=== PATIENT | male | born 1950 | race Caucasian/White ===

== ENCOUNTER 2021-11-14 13:58 | Emergency (ER) | payer MEDICARE, BC, SELFPAY ==
[2021-11-14 14:18] VITALS: BP 160/121; PULSE 79; RESP 14; TEMP 36.5; O2SAT 97
--- NOTE | 2021-11-14 14:47 | DI.RAD_ITS ---
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 COMPARISON: No exams were available for comparison FINDINGS: MEDIASTINUM: Normal. HEART: Normal. PULMONARY VASCULATURE: Normal. LUNGS: Clear. PLEURAL SPACE: No pleural effusion or pneumothorax. BONE:Within normal limits for the patient's age. LEFT RIBS: There are multiple old healed left rib fractures. There is a question cortical disruption the anterolateral aspects of the left 5th and 6th rib suspicious for nondisplaced fractures. OTHER FINDINGS:Normal. IMPRESSION: 1. No acute pulmonary findings. 2. Question of acute nondisplaced fractures involving the anterolateral 5th and 6th left ribs. DATA REPOSITORY: RADIATION DOSE DELIVERED:
--- NOTE | 2021-11-14 16:07 | DI.VRAD_ITS ---
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 Views: 2 views. COMPARISON: No relevant prior studies available. FINDINGS: Bones/joints: There are moderate degenerative changes of the glenohumeral joint. There are fractures of the left posterolateral 6th and 7th ribs that appear chronic. There are more acute appearing fractures of the left 8th 9th and 10th ribs. Soft tissues: Normal. IMPRESSION: Multiple chronic and acute left rib fractures. 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 Views: 2 views. COMPARISON: No relevant prior studies available. FINDINGS: Lungs: Unremarkable. No consolidation. Pleural spaces: Unremarkable. No pleural effusion. No pneumothorax. Heart/Mediastinum: Unremarkable. No cardiomegaly. Bones/joints: Thoracolumbar scoliosis IMPRESSION: No acute cardiopulmonary findings. Dictated and Authenticated by: Davy Xiao MD. Ordering:GRADY Negron MD
--- NOTE | 2021-11-14 16:25 | ED.GENADUL_ITS ---
Discharge Plan Disposition Patient Disposition: HOME Condition: Serious Discharge Details Clinical Impression: Multiple rib fractures Primary Care Provider: Unknown,Unknown ED Provider: Migdalia Ruelas Home Meds and New Rx's Prescriptions: New hydrocodone-acetaminophen 5-325 mg tablet 1 tab PO Q8H PRNQty: 10 0RF Continued sulfamethoxazole-trimethoprim [Bactrim] 400-80 mg Tablet 1 tab PO DAILY 0RF clonazepam 0.5 mg Tablet 1 mg PO TID 0RF Discharge Instructions Instructions: Rib Fracture (ED) Additional Instructions: Use your incentive spirometer every half an hour while you are awake, this will prevent you from developing pneumonia You are at great risk for developing pneumonia given your COPD history Please take the pain medication as needed pain use the Lidoderm patch twop-scr-[id number] apply towers on, 12 hours off Please return immediately should you develop worsening shortness of breath, fever, chills, or with any new or worsening complaints Recheck in 24 to 48 hours for reassessment Discharge Data Discharge Date/Time-TO BE ENTERED AT DEPARTURE: 11/14/21 17:04 Medical Decision Making Fractures to a 8-10 on x-ray, no pneumothorax per radiology interpretation in my review Offered admission given patient's age and multiple rib fractures, however patient has declined, he is ambulatory with steady gait He is alert and oriented x4 and of decisional capacity No additional evidence of trauma and event occurred 3 days prior to arrival without obvious infiltrate or pneumothorax on x-ray, reassuring Given small amount of opiate analgesia with versed discussed Patient was visiting family and resides in [place] typically, he is instructed to follow-up at his earliest ability return for patient expressed understanding, supplied with incentive spirometry with instructions regarding use Discharged home in stable condition stable, ambulatory steady gait, no hypoxia or tachypnea Medical Records Medical records reviewed: Yes I reviewed the patient's medical records. HPI General Date/Time Provider Initiated Documentation: 11/14/21 14:35 . HPI Narrative: This 71-year-old gentleman with history of COPD presents status post slip and fall on ice. He was taking his dog for a walk when another dog attacked his dog and the patient slipped, landing on his left side. This occurred 3 days prior to arrival. He denies any additional injuries. He is able to ambulate at home after the event. There was no loss of consciousness. Patient is not anticoagulated. He does smoke tobacco and does have COPD but is controlled on his medications. He is reportedly visiting from [place]. He presents today secondary to persistent pain that is not improving. He denies any fever, chills, worsening shortness of breath. Related Data Home Medications Medication Instructions Recorded Confirmed clonazepam 0.5 mg tablet 1 mg PO TID 11/14/21 11/14/21 sulfamethoxazole 400 1 tab PO DAILY 11/14/21 11/14/21 mg-trimethoprim 80 mg tablet (Bactrim) hydrocodone 5 mg-acetaminophen 325 1 tab PO Q8H PRN #10 tab 11/15/21 mg tablet Previous Rx's Medication Instructions Recorded hydrocodone 5 mg-acetaminophen 325 1 tab PO Q8H PRN #10 tab 11/15/21 mg tablet Allergies Allergy/AdvReac Type Severity Reaction Status Date / Time No Known Allergies Allergy Unverified 11/14/21 14:21 General Stated Complaint: Chest/Rib CLINTON: 3 Review of Systems All systems reviewed & are unremarkable except as noted in HPI and below PFSH All Active Problems (Updated 11/14/21 @ 16:28 by KEERTHI Kirkpatrick) Multiple rib fractures (Acute) Social History Smoking/Tobacco Use Status: Current every day Tobacco Type: cigarettes Smoking risk assessment performed?: Yes Alcohol Intake: current Alcohol Intake frequency: 0-2 drinks per day Alcohol type: hard liquor Drug use: Occasionally Substance use type: marijuana Do you feel safe at home: Yes Exam Const General: cooperative, comfortable and no acute distress HENMT Head: normal to inspection Eyes Pupils: PERRL Neck Other: No midline tenderness Chest Chest: normal inspection of the chest Other: No crepitus, tenderness with palpation over left lower rib cage, no flail Chest Resp Effort & Inspection: normal respiratory effort Auscultation: clear to auscultation bilaterally Cardio Rate: regular rate Rhythm: regular rhythm GI Other: Nontender abdominal exam no tenderness over spleen or liver, no visible sign of trauma Skin General skin exam: no rashes or lesions noted Neuro General: patient alert and patient oriented x3 Extrem General: normal to inspection Psych Appearance: grossly normal Course Vital Signs Vital signs: Vital Signs Temperature 36.5 C 11/14/21 14:18 Pulse 79 11/14/21 14:18 Respiratory Rate 14 11/14/21 14:18 Blood Pressure 160/121 H 11/14/21 14:18 Pulse Oximetry 97 11/14/21 14:18 Temperature 36.5 C 11/14/21 14:18 Temperature Source Temporal Artery Scan 11/14/21 14:18 Pulse 79 11/14/21 14:18 Respiratory Rate 14 11/14/21 14:18 Respiratory Effort Non-Labored 11/14/21 14:22 Blood Pressure 160/121 H 11/14/21 14:18 Blood Pressure Position Sitting 11/14/21 14:18 Pulse Oximetry 97 11/14/21 14:18 Oxygen Delivery Method Room Air 11/14/21 14:18 Oxygen Flow Rate 0 11/14/21 14:18 Pain Level 8 11/14/21 14:18 PAWSS Have you Been Recently Intoxicated or Drunk Within the Last 30 days?: No Have you Ever Experienced Previous Episodes of Alcohol Withdrawal?: No Have you ever Experienced Withdrawal Seizures?: No Have you ever Experienced Delirium Tremens(DT)s?: No Have you ever undergone Alcohol Rehabilitation Treatment (i.e, inpt ot outpatient treatment programs)?: No Have you ever Experienced Blackouts?: No Have you ever Combined Alcohol with other Downers within the last 90 days?: No Have you ever Combined Alcohol with any other Substance of Abuse during the last 90 days?: No Positive Blood Alcohol level on Presentation? [PCS.BAL]: No Evidence of Increased Autonomic Activity (i.e. HR>120, tremor, sweating, agitation, nausea)?: No Result: 0
[2021-11-14 16:37] VITALS: BP 103/69; PULSE 73; TEMP 36.7
== END 2021-11-14 17:04 | disposition home or self-care (01) ==
PROVIDERS: Emergency Provider Physician Assistant
DX: S22.42XA Multiple fractures of ribs, left side, initial encounter for closed fracture (principal); W00.0XXA Fall on same level due to ice and snow, initial encounter
CPT/HCPCS: 99283; 71046; 71100

== ENCOUNTER 2022-11-11 13:15 | Emergency (ER) | payer MEDICARE, BC, SELFPAY ==
[2022-11-11 13:23] VITALS: BP 144/73; PULSE 86; RESP 18; TEMP 36.5; O2SAT 94
--- NOTE | 2022-11-11 13:30 | DI.RAD_ITS ---
Exam(s) XR TIB/FIB RT EXAM: XR TIB/FIB RT CLINICAL HISTORY: Injury, Deformity. TECHNIQUE: 2D digital imaging was performed of the right tibia and fibula. Three images were obtaine d. AP and lateral views were obtained. COMPARISON: No exams were available for comparison FINDINGS: BONES: There is a nondisplaced transverse fracture of the midshaft of the right tibia. On the latera l view, there also appears to be a nondisplaced fracture at the junction of the proximal middle third s of the fibula. There is marked posttraumatic deformity of both the tibia and fibula. Visualized p ortion of knee and ankle joints are unremarkable. SOFT TISSUE: Surgical clips are seen in the soft tissues. IMPRESSION: 1. Acute nondisplaced fracture involving the midshaft of the right tibia. 2. On the lateral view, there appears to be a nondisplaced fracture of the proximal fibula. 3. Findings were discussed with Kay Oliver at 3:50 p.m. on 11/11/2022. DATA REPOSITORY: RADIATION DOSE DELIVERED:
--- NOTE | 2022-11-11 13:45 | W.ED.GENAD ---
Discharge Plan Disposition Patient Disposition: Home Condition: Stable Discharge Details Clinical Impression: Fracture Primary Care Provider: Unknown,Unknown ED Provider: Migdalia Ruelas Home Meds and New Rx's Prescriptions: New oxycodone 5 mg capsule 5 mg PO Q8H PRNQty: 10 0RF Continued clonazepam 0.5 mg Tablet 1 mg PO TID rosuvastatin 10 mg Tablet 10 mg PO DAILY Discharge Instructions Additional Instructions: Take a full dose aspirin, make sure you move your toes frequently so that you do not get a blood clot Use crutches with ambulation, you should not be bearing weight You will need to see orthopedics, call your orthopedist in [place] to schedule follow-up for when you return home You should keep this completely dry, if it becomes wet and will no longer be effective Take Tylenol with the oxycodone daily Return earlier with new or worsening complaints Medical Decision Making <Kay Oliver NP - Last Filed: 11/11/22 15:45> 72-year-old male presents to the ER with right lower leg deformity and swelling status post a skiing accident which occurred prior to arrival. Patient slowly put himself down 90 on his right leg while skiing just prior to arrival. He does have some swelling noted to his proximal lateral calf and pain. Distal CMS is intact. Denies any upper thigh pain or hip pain. Denies any chest pain or any other injuries. X-ray tib-fib ordered, IV Dilaudid and Zofran. Normal saline. BC CMP ordered, awaiting x-rays at this time. Care is to be handed off to oncoming provider Migdalia Ruelas pending x-ray results. Lab Data Lab results reviewed: Yes I reviewed the patient's lab results. Labs: Laboratory Tests Range/Units 11/11/22 11/11/22 14:12 14:12 WBC (4.4-10.8) 10^3/uL 9.42 RBC (4.36-5.78) 10^6/uL 4.12 L Hgb (13.5-17.5) g/dL 12.5 L Hct (40.0-50.0) % 37.7 L MCV (80-95) fL 92 MCH (27.0-33.0) pg 30.3 MCHC (32.0-36.0) % 33.2 RDW (11.8-14.1) % 13.9 Plt Count (130-400) 10^3/uL 195 MPV (8.0-11.0) fL 9.3 Immature Gran % 0.4 Neutrophils % 79.2 Lymphocytes % 8.4 Monocytes % 8.5 Eosinophils % 3.1 Basophils % 0.4 Nucleated RBC % (0.0-0.3) % 0.0 Absolute Neutrophils (1.2-6.7) 10^3/uL 7.46 H Absolute Lymphocytes (1.2-3.4) 10^3/uL 0.79 L Absolute Monocytes (0.1-0.8) 10^3/uL 0.80 Absolute Eosinophils (0.0-0.7) 10^3/uL 0.29 Absolute Basophils (0.0-0.2) 10^3/uL 0.04 Sodium (136-145) mmol/L 141 Potassium (3.5-5.1) mmol/L 4.2 Chloride (98-107) mmol/L 107 Carbon Dioxide (21.0-32.0) mmol/L 23.0 Anion Gap (3-11) mmol/L 11.0 BUN (7-18) mg/dL 26 H Creatinine (0.70-1.30) mg/dL 1.2 Est GFR (CKD-EPI 2020) (mL/min/1.73m2) 63.46 Glucose (74-106) mg/dL 90 Calcium (8.5-10.1) mg/dL 8.7 Total Bilirubin (0.2-1.0) mg/dL 0.3 AST (15-37) U/L 21 ALT (16-63) U/L 31 Alkaline Phosphatase (46-116) U/L 61 Total Protein (6.4-8.2) g/dL 6.8 Albumin (3.4-5.0) g/dL 3.9 <KEERTHI Kirkpatrick - Last Filed: 11/11/22 21:40> 72-year-old male presents to the ER with right lower leg deformity and swelling status post a skiing accident which occurred prior to arrival. Patient slowly put himself down 90 on his right leg while skiing just prior to arrival. He does have some swelling noted to his proximal lateral calf and pain. Distal CMS is intact. Denies any upper thigh pain or hip pain. Denies any chest pain or any other injuries. X-ray tib-fib ordered, IV Dilaudid and Zofran. Normal saline. BC CMP ordered, awaiting x-rays at this time. Care is to be handed off to oncoming provider Migdalia Ruelas pending x-ray results. LB: Care is accepted in transition at 1600, I discussed x-ray imaging with obvious nondisplaced fracture to the midshaft tibia and proximal fibula, recommendation for posterior splint and outpatient reassessment Patient appears slightly confused and family is not available at time of my assessment so CT head and cervical spine were ordered although patient does not endorse any head injury he was not helmeted during his ski accident and he does have distracting injury CT head and cervical spine does not show evidence of acute abnormality, arrives to pick patient up and states that she feels as though he is at his baseline at this time He is ambulatory with antalgic but steady gait, he is nonweightbearing He is given copy of his CD for outpatient follow-up, they reside in [place] and will follow up with the orthopedist there He will increase his aspirin to 325 mg daily and measures to avoid DVT reviewed He is discharged home in stable condition with stable vitals, small amount of opiate analgesia with risk of addiction reviewed HPI <Kay Oliver NP - Last Filed: 11/11/22 15:45> General Mode of arrival: wheelchair (POV). Date/Time Provider Initiated Documentation: 11/11/22 13:21. Limitations to Documentation: no limitations. Information obtained by: patient, family, RN notes reviewed and old records reviewed. HPI Narrative: 72-year-old male presents to the ER with right lower leg deformity and swelling status post a skiing accident which occurred prior to arrival. Patient slowly put himself down 90 on his right leg while skiing just prior to arrival. He does have some swelling noted to his proximal lateral calf and pain. Distal CMS is intact. Denies any upper thigh pain or hip pain. Denies any chest pain or any other injuries. Does have a past medical history of high cholesterol, COPD, CVA, CAD and has had surgery on his left leg for broken bones. Related Data Home Medications Medication Instructions Recorded Confirmed clonazepam 0.5 mg tablet 1 mg PO TID 11/14/21 11/11/22 oxycodone 5 mg capsule 5 mg PO Q8H PRN #10 caps 11/11/22 rosuvastatin 10 mg tablet 10 mg PO DAILY 11/11/22 11/11/22 Previous Rx's Medication Instructions Recorded oxycodone 5 mg capsule 5 mg PO Q8H PRN #10 caps 11/11/22 Allergies Allergy/AdvReac Type Severity Reaction Status Date / Time No Known Allergies Allergy Unverified 11/11/22 13:25 General Stated Complaint: Orthopedic CLINTON: 3 Review of Systems <Kay Oliver NP - Last Filed: 11/11/22 15:45> Musculoskeletal Musculoskeletal: Reports as per HPI and Reports deformity PFSH <Kay Oliver NP - Last Filed: 11/11/22 15:45> All Active Problems (Updated 11/11/22 @ 19:21 by KEERTHI Kirkpatrick) Fracture (Acute) Social History Smoking/Tobacco Use Status: Former Tobacco Use Smoking risk assessment performed?: Yes Alcohol Intake: current Alcohol Intake frequency: 0-2 drinks per day Alcohol type: hard liquor Drug use: Occasionally Substance use type: marijuana Do you feel safe at home: Yes Do you feel safe in your relationship?: Yes Exam <Kay Oliver NP - Last Filed: 11/11/22 15:45> Narrative Exam Narrative: General: Well Developed, Awake and Alert, conversant. Skin: Warm and Dry HEENT: Head: No palpable deformities, Normocephalic Eyes: Pupils PERRLA, EOM's intact. No periorbital eccymosis or step off Ears: Canal patent. Tympanic membranes are clear . No cummins's sign, no hemptympanum. Nose/Face: Atraumatic. Facial bones nontender to palpation and stable with manipulation. Mouth/Throat: No intraoral trauma. Teeth and mandible are intact. Neck: No midline tenderness, no step off, no deformity to palpation of C-spine. Trachea midline. Chest: No surface trauma. Nontender without crepitus or deformity. Lungs clear to ausculatation bilaterally. Heart: RRR, no rubs, murmurs or gallop. Abdomen: No abrasions, ecchymosis, or surface trauma. Nondistended. Nontender to palpation no guarding, rebound, or rigidity. Pelvis: Nontender to palpation and stable to compression. Femoral pulses strong and equal Extremities: no surface trauma. Sensation intact. Peripheral pulses intact and equal. Right proximal lateral calf swelling and pain. Chronic appearing thickening to the skin. Neuro: ANO x4, GCS 15, cranial nerves II through XII intact. Motor and sensory exam nonfocal. Reflexes are symmetric. Course <Kay Oliver NP - Last Filed: 11/11/22 15:45> Vital Signs Vital signs: Vital Signs Temperature 36.5 C 11/11/22 13:23 Pulse 86 11/11/22 13:23 Respiratory Rate 18 11/11/22 13:23 Blood Pressure 144/73 H 11/11/22 13:23 Pulse Oximetry 94 11/11/22 13:23 Temperature 36.5 C 11/11/22 13:23 Temperature Source Oral 11/11/22 13:23 Pulse 86 11/11/22 13:23 Respiratory Rate 18 11/11/22 13:23 Respiratory Effort Normal, Non-Labored 11/11/22 13:25 Blood Pressure 144/73 H 11/11/22 13:23 Pulse Oximetry 94 11/11/22 13:23 Oxygen Delivery Method Room Air 11/11/22 13:23 Oxygen Flow Rate 0 11/11/22 13:23 Sign Out <Kay Oliver NP - Last Filed: 11/11/22 15:45> Sign Out Data: Sign Out Comment: 72-year-old male with a fall while skiing. Pending x-ray results. Possible tibia fracture. There is some chronic appearing changes on the x-ray. Last updated by Kay Oliver NP at 11/11/22 15:43 PAWSS <Kay Oliver NP - Last Filed: 11/11/22 15:45> Have you Been Recently Intoxicated or Drunk Within the Last 30 days?: No Have you Ever Experienced Previous Episodes of Alcohol Withdrawal?: No Have you ever Experienced Withdrawal Seizures?: No Have you ever Experienced Delirium Tremens(DT)s?: No Have you ever undergone Alcohol Rehabilitation Treatment (i.e, inpt ot outpatient treatment programs)?: No Have you ever Experienced Blackouts?: No Have you ever Combined Alcohol with other Downers within the last 90 days?: No Have you ever Combined Alcohol with any other Substance of Abuse during the last 90 days?: No Positive Blood Alcohol level on Presentation? [PCS.BAL]: No Evidence of Increased Autonomic Activity (i.e. HR>120, tremor, sweating, agitation, nausea)?: No Result: 0 <KEERTHI Kirkpatrick - Last Filed: 11/11/22 21:40> Result: 0
[2022-11-11] MEDS: HYDROmorphone 2 MG/ML SYR 0.5 MG IVP ×2 (13:59→17:06)
[2022-11-11] MEDS: Normal Saline 1,000 ML 150 ML IV (14:00)
[2022-11-11] MEDS: Ondansetron 4 MG/2 ML VIAL IVP (14:01)
[2022-11-11 14:20] LABS: Abs Immature Grans 0.04 10^3/uL (0.0-0.06); Absolute Basophil Count 0.04 10^3/uL (0.0-0.2); Absolute Eosinophil Count 0.29 10^3/uL (0.0-0.7); Absolute Lymphocyte Count 0.79 10^3/uL (1.2-3.4); Absolute Neutrophil Count 7.46 10^3/uL (1.2-6.7); Basophils % 0.4; Eosinophils % 3.1; HCT 37.7 % (40.0-50.0); HGB 12.5 g/dL (13.5-17.5); Immature Grans % 0.4; Lymphocytes % 8.4; MCH 30.3 pg (27.0-33.0); MCHC 33.2 % (32.0-36.0); MCV 92 fL (80-95); MPV 9.3 fL (8.0-11.0); Monocytes % 8.5; Neutrophils % 79.2; Platelet Count 195 10^3/uL (130-400); RBC 4.12 10^6/uL (4.36-5.78); RDW 13.9 % (11.8-14.1); WBC 9.42 10^3/uL (4.4-10.8)
[2022-11-11 14:37] LABS: ALT 31 U/L (16-63); AST 21 U/L (15-37); Albumin 3.9 g/dL (3.4-5.0); Alkaline Phosphatase 61 U/L (46-116); BUN 26 mg/dL (7-18); Bilirubin, Total 0.3 mg/dL (0.2-1.0); CREATININE 1.2 mg/dL (0.70-1.30); Calcium 8.7 mg/dL (8.5-10.1); Chloride 107 mmol/L (98-107); Estimated GFR 63.46 (mL/min/1.73m2); Glucose 90 mg/dL (74-106); Potassium 4.2 mmol/L (3.5-5.1); Sodium 141 mmol/L (136-145); Total Protein 6.8 g/dL (6.4-8.2)
--- NOTE | 2022-11-11 17:30 | DI.CT_ITS ---
Exam(s) CT HEAD CERVICAL SPINE WO EXAM: CT HEAD CERVICAL SPINE WO CLINICAL HISTORY: confused. TECHNIQUE: Imaging Protocol: Axial computed tomography images with coronal and sagittal reformatted images were created and reviewed COMPARISON: No exams were available for comparison FINDINGS: Head CT Ventricles and Extra axial spaces: Normal in size for the patient's age. Prominent posterior horns o f the lateral ventricles appears developmental. Hemorrhage: None. Cerebral parenchyma: Atrophy. Midline shift: None. Brainstem/Cerebellum: Normal. Calvarium: Normal. Visualized Paranasal sinuses/Mastoids: Ethmoid sinus mucosal thickening. Cervical Spine CT BONES: Vertebral body heights are maintained. Alignment is normal. There is no evidence of acute frac ture. Degenerative disc changes and facet degenerative changes are seen . SOFT TISSUES: No paraspinal hematoma. The airway appears intact. No pneumothorax is seen at the lung apices. Emphysematous changes present. IMPRESSION: Head CT: No acute abnormality. C-spine CT: Degenerative changes, no acute abnormality. RADIATION DOSE DELIVERED: 1,366.12mGy.cm Total DLP DATA REPOSITORY: All CT scans at this facility are submitted to the National Radiology Data Registry (NRDR) Dose Index Registry (DIR) with the [employer] (A[employer]). RADIATION OPTIMIZATION: All CT scans at this facility use at least one of these dose optimization te chniques: automated exposure control; mA and/or kV adjustment per patient size (includes targeted exa ms where dose is matched to clinical indication); or iterative reconstruction.
[2022-11-11] MEDS: HYDROmorphone 2 MG/ML SYR (18:14)
--- NOTE | 2022-11-11 18:55 | DI.VRAD_ITS ---
PROCEDURE INFORMATION: Exam: CT Head Without Contrast Exam date and time: 11/11/2022 6:01 PM Age: 72 years old Clinical indication: Other: Confusion TECHNIQUE: Imaging protocol: Computed tomography of the head without contrast. COMPARISON: No relevant prior studies available. FINDINGS: Brain: Age-appropriate atrophy. No intracranial hemorrhage. No large territory acute CVA. No mass lesions. Cerebral ventricles: No ventriculomegaly. Paranasal sinuses: Mild scattered chronic sinus disease. No sinus air-fluid level evident. Mastoid air cells: Visualized mastoid air cells are well aerated. Bones/joints: No skull fracture. Soft tissues: Soft tissues of the scalp are unremarkable. No significant hematoma or contusion. No foreign body. IMPRESSION: 1. Age-appropriate atrophy. 2. No intracranial hemorrhage. 3. No skull fracture. 4. No large territory infarct, mass, or edema. PROCEDURE INFORMATION: Exam: CT Cervical Spine Without Contrast Exam date and time: 11/11/2022 6:01 PM Age: 72 years old Clinical indication: Other: Confusion TECHNIQUE: Imaging protocol: Computed tomography of the cervical spine without contrast. COMPARISON: CR XR RIBS LT W PA LAT CHEST 11/14/2021 3:13 PM FINDINGS: Bones/joints: No cervical spine fracture. Multilevel degenerative disc and facet disease. Most severe at C5-C6 and C6-C7. No posttraumatic malalignment. Lungs: Lung apices are clear. Vasculature: Bilateral cervical carotid artery atherosclerotic calcium. Soft tissues: Unremarkable. IMPRESSION: 1. Degenerative cervical spine changes. 2. No acute fracture or dislocation. Dictated and Authenticated by: Albin Richards MD. Ordering:GRADY Negron MD
[2022-11-11] MEDS: oxyCODONE 5 mg/Acetaminophen 325 mg TAB 1 TAB PO (19:25)
== END 2022-11-11 19:44 | disposition home or self-care (01) ==
PROVIDERS: Registered Nurse Emergency; Emergency Provider Physician Assistant
DX: S82.201A Unspecified fracture of shaft of right tibia, initial encounter for closed fracture (principal); S82.831A Other fracture of upper and lower end of right fibula, initial encounter for closed fracture; I25.10 Atherosclerotic heart disease of native coronary artery without angina pectoris; J44.9 Chronic obstructive pulmonary disease, unspecified; Z86.73 Personal history of transient ischemic attack (TIA), and cerebral infarction without residual deficits; V00.321A Fall from snow-skis, initial encounter; Y93.23 Activity, snow (alpine) (downhill) skiing, snowboarding, sledding, tobogganing and snow tubing
CPT/HCPCS: 80053; 96361; 96374; 96375; 96376; 99284; 70450; 72125; 73590; 85025; J1170; J2405